=== PATIENT | female | born 1935 | race Caucasian/White ===

== ENCOUNTER 2019-06-30 13:39 | Outpatient (CLI) | payer MEDICARE, BC | END 2019-06-30 23:59 | disposition home or self-care (01) | LOC: CARD DIAG 13:39 | PROVIDERS: ATTEND Internal Medicine Cardiovascular Disease | DX: I08.3 Combined rheumatic disorders of mitral, aortic and tricuspid valves (principal); Z95.2 Presence of prosthetic heart valve | CPT/HCPCS: 93306 ==

== ENCOUNTER 2019-07-10 12:39 | Day surgery (SDC) | payer MEDICARE, BC ==
[2019-07-09 16:50] LABS: BASOPHILS # (AUTO) 0.1 X10'3 (0-0.2); BASOPHILS % (AUTO) 0.7 % (0-1); EOSINOPHILS # (AUTO) 0.3 X10'3 (0-0.9); EOSINOPHILS % (AUTO) 3.2 % (0-6); HEMATOCRIT 39.9 % (35.0-45.0); LYMPHOCYTES # (AUTO) 1.7 X10'3 (1.1-4.8); LYMPHOCYTES % (AUTO) 20.6 % (21-51); MEAN CORPUSCULAR HEMOGLOBIN 34.1 PG (27.0-31.0); MEAN CORPUSCULAR VOLUME 97.3 FL (78-98); MEAN PLATELET VOLUME 8.4 FL (7.4-10.4); MONOCYTES # (AUTO) 0.7 X10'3 (0-0.9); MONOCYTES % (AUTO) 8.8 % (2-12); NEUTROPHILS # (AUTO) 5.5 X10'3 (1.8-7.7); NEUTROPHILS % (AUTO) 66.7 % (42-75); PLATELET COUNT 245 X10'3 (140-440); RED BLOOD COUNT 4.11 X10'6 (4.20-5.60); RED CELL DISTRIBUTION WIDTH 12.7 % (11.5-14.5); WHITE BLOOD COUNT 8.3 X10'3 (4.5-11.0)
[2019-07-09 17:02] LABS: ALBUMIN 3.8 G/DL (3.4-5.0); ANION GAP 10 (8-16); BLOOD UREA NITROGEN 19 MG/DL (7-18); BUN/CREATININE RATIO 18.8 (6.6-38.0); CALCIUM 9.4 MG/DL (8.5-10.1); CHLORIDE 104 MMOL/L (99-107); CREATININE 1.01 MG/DL (0.40-0.90); GLUCOSE 233 MG/DL (70-104); POTASSIUM 4.1 MMOL/L (3.5-5.1); SODIUM 142 MMOL/L (135-145); TOTAL CARBON DIOXIDE 27.9 MMOL/L (24-32); eGFR 52 ML/MIN
[2019-07-09 17:05] LABS: PARTIAL THROMBOPLASTIN TIME 25 SECONDS (22-32)
[~2019-07-10] VITALS: Ht 160 cm; Wt 65.6 kg
[2019-07-10] VITALS (8 sets, daily range): BP systolic 96–135; BP diastolic 42–63
[2019-07-10] MEDS ORDERED: cefazolin/dext.iso 2gm/100ml 100 ML IV ONE (13:55)
[2019-07-10] MEDS ORDERED: METF500T PO (14:05)
[2019-07-10] MEDS ORDERED: ATOR20TA PO (14:05)
[2019-07-10] MEDS ORDERED: ATEN50TA PO (14:05)
[2019-07-10] MEDS ORDERED: OMEP40CA13 PO (14:05)
[2019-07-10] MEDS ORDERED: AMLO10TA4 PO (14:05)
[2019-07-10] MEDS ORDERED: VALA500T PO (14:05)
[2019-07-10] MEDS ORDERED: FLUT16SP2 BOTHNARES (14:05)
[2019-07-10] MEDS ORDERED: ASCO1TAB42 PO (14:05)
[2019-07-10] MEDS ORDERED: METH500T4 PO (14:05)
[2019-07-10] MEDS ORDERED: MONT10TA21 PO (14:05)
[2019-07-10] MEDS ORDERED: LEVO137T24 PO (14:05)
[2019-07-10] MEDS ORDERED: BIMA2.5D OP (14:05)
[2019-07-10] MEDS ORDERED: SUCR1TAB PO (14:07)
[2019-07-10] MEDS ORDERED: normal saline 1000ml 1,000 ML IV SCH (14:30)
[2019-07-10] MEDS ORDERED: midazolam 2 mg/2 ml injection ONE (15:48)
[2019-07-10] MEDS ORDERED: fentaNYL/PF 50MCG/1 ML 2ML syringe ONE (15:48)
[2019-07-10] MEDS ORDERED: ceFAZolin 1000mg inj ONE (15:48)
[2019-07-10] MEDS ORDERED: vancomycin 1,000mg inj ONE (15:48)
[2019-07-10] MEDS ORDERED: LIDOcaine 1% W/epiNEPHrine 1:100,000 20ml vial ONE (16:40)
[2019-07-10] MEDS ORDERED: HYDROcodone/acetaminophen 5mg/325mg tablet PO PRN (18:05)
[2019-07-10] MEDS ORDERED: normal saline 1000ml 1,000 ML IV ONE (18:05)
[2019-07-10] MEDS ORDERED: HYDROcodone/acetaminophen 10/325mg tab PO PRN (18:05)
[2019-07-10] MEDS ORDERED: vancomycin/NS 1 GM ADD-VANTAGE 250 ML X 1 DOSE IV ONE (18:05)
== END 2019-07-10 20:30 | disposition home or self-care (01) ==
LOC: SSTAY O 12:39
PROVIDERS: ATTEND Internal Medicine Cardiovascular Disease
DX: Z45.02 Encounter for adjustment and management of automatic implantable cardiac defibrillator (principal); E11.9 Type 2 diabetes mellitus without complications; I10 Essential (primary) hypertension; E78.5 Hyperlipidemia, unspecified; K21.9 Gastro-esophageal reflux disease without esophagitis; Z98.890 Other specified postprocedural states; Z90.710 Acquired absence of both cervix and uterus; Z79.899 Other long term (current) drug therapy; Z79.01 Long term (current) use of anticoagulants; Z88.5 Allergy status to narcotic agent
CPT/HCPCS: 33262; 36415; 80048; 85025; 85610; 85730; 93005; 99152; 99153; C1722; J0690; J2250; J3010; J3370; J7030; 33207; A4620

== ENCOUNTER 2021-02-14 10:04 | Outpatient (CLI) | payer MEDICARE ==
[~2021-02-14 10:04] MED LIST: AMLO10TA4 PO; ASCO1TAB42 PO; ATEN50TA PO; ATOR20TA PO; BIMA2.5D OP; FLUT16SP2 BOTHNARES; LEVO137T24 PO; METF500T PO; METH500T4 PO; MONT10TA21 PO; OMEP40CA21 PO; SUCR1TAB PO; VALA500T PO
== END 2021-02-14 23:59 | disposition home or self-care (01) ==
LOC: RAD 10:04
PROVIDERS: ATTEND Psychiatry & Neurology Neurology
DX: R55 Syncope and collapse (principal)
CPT/HCPCS: 95816

== ENCOUNTER 2022-11-06 09:16 | Outpatient (CLI) | payer MEDICARE ==
[~2022-11-06 09:16] MED LIST changes: +MONT-47 PO; -MONT10TA21 PO
== END 2022-11-06 23:59 | disposition home or self-care (01) ==
LOC: CARD DIAG 09:16
PROVIDERS: ATTEND Internal Medicine Cardiovascular Disease
DX: I34.81 Nonrheumatic mitral (valve) annulus calcification (principal); I34.0 Nonrheumatic mitral (valve) insufficiency; I35.0 Nonrheumatic aortic (valve) stenosis
CPT/HCPCS: 93306